=== PATIENT | female | born 1965 | race Caucasian/White ===

== ENCOUNTER 2024-08-11 22:09 | Inpatient (IN) | payer BC ==
[~2024-08-11] VITALS: Ht 157.5 cm; Wt 113.4 kg
[2024-08-11] MEDS: ACETAMINOPHEN 1000MG/100ML 100 ML IV ONE (22:44)
[2024-08-11 22:59] LABS: HEMATOCRIT. 42.2 % (36.0-48.0); HEMOGLOBIN. 13.8 g/dL (12.0-16.0); MEAN CORPUSCULAR HEMOGLOBIN 28.6 pg (28.0-32.0); MEAN CORPUSCULAR HGB CONC 32.7 g/dL (31.0-37.0); MEAN CORPUSCULAR VOLUME 87.4 fL (81.0-99.0); MEAN PLATELET VOLUME 7.2 fl (7.4-10.4); PLATELET 225 x1000/uL (130-400); RED BLOOD CELL COUNT 4.82 mill/uL (4.2-5.4); RED CELL DISTRIBUTION WIDTH 16.5 % (11.6-14.6); WHITE BLOOD COUNT 9.5 x1000/uL (4.5-11.0)
[2024-08-11 23:02] LABS: DIFFERENTIAL COMMENT 1
[2024-08-11 23:12] LABS: AMMONIA < 17 uMol/L (<32); INR 1.1; LACTIC ACID 2.7 mmol/L (0.4-2.0); PROTHROMBIN TIME 11.9 sec (9.6-11.0)
[2024-08-11 23:18] LABS: PLATELET ESTIMATE NORMAL
[2024-08-11 23:27] LABS: CHLORIDE 103 mEq/L (98-107); SODIUM 133 mEq/L (136-145)
[2024-08-11 23:28] LABS: CARBON DIOXIDE 19 mEq/L (21-32)
[2024-08-11 23:29] LABS: CALCIUM 9.6 mg/dL (8.7-10.4)
[2024-08-11 23:33] LABS: CREATININE 0.9 mg/dL (0.6-1.0); GLUCOSE 326 mg/dL (70-105)
[2024-08-11 23:34] LABS: UREA NITROGEN BLOOD 19 mg/dL (9-23)
[2024-08-11 23:35] LABS: ALANINE AMINOTRANSFERASE 19 IU/L (10-49); ALBUMIN 3.9 g/dL (3.2-4.8); ASPARTATE AMINOTRANSFERASE 30 IU/L (<34)
[2024-08-11 23:36] LABS: BILIRUBIN DIRECT 0.2 mg/dL (<=3.0); BILIRUBIN TOTAL 0.5 mg/dL (0.1-1.0)
[2024-08-11] MEDS: SODIUM CHLORIDE 0.9% 1000ML BAG (SEPSIS BOLUS) IV ONE (23:38)
[2024-08-11 23:55] LABS: ETHANOL BLOOD < 10 mg/dL (<10)
[2024-08-12] VITALS (75 sets, daily range): BP systolic 61–175; BP diastolic 31–144; PULSE 73–120; RESP 12–38; TEMP 37.503–38.3364; O2SAT 89–98
[2024-08-12] MEDS: VANCOMYCIN 1.5GM/250ML 250 ML IV NR (00:12)
[2024-08-12 00:38] LABS: CLARITY URINE CLOUDY (CLEAR); COLOR URINE DARK YELLOW (YELLOW); GLUCOSE URINE 3+ (NEGATIVE); KETONES URINE 2+ (NEGATIVE); LEUKOCYTE ESTERASE URINE 1+ (NEGATIVE); NITRITE URINE POSITIVE (NEGATIVE); OCCULT BLOOD URINE 3+ (NEGATIVE); PH URINE 5.5 (4.5-8.0); PROTEIN URINE 2+ (NEGATIVE); SPECIFIC GRAVITY URINE 1.035 (1.005-1.030)
[2024-08-12 00:48] LABS: *AMPHETAMINES SCREEN URINE NEGATIVE (NEGATIVE); *BARBITURATES SCREEN URINE NEGATIVE (NEGATIVE); *BENZODIAZEPINES SCREEN URINE NEGATIVE (NEGATIVE); *COCAINE SCREEN URINE NEGATIVE (NEGATIVE); CANNABINOID URINE SCREEN NEGATIVE (NEGATIVE); ECSTASY MDMA SCREEN URINE NEGATIVE (NEGATIVE); METHADONE URINE SCREEN NEGATIVE (NEGATIVE); OPIATES URINE SCREEN NEGATIVE (NEGATIVE); PHENCYCLIDINE URINE SCREEN NEGATIVE (NEGATIVE)
[2024-08-12] MEDS ORDERED: NOREPINEPHRINE 8 MG in DEXT 5% WATER 242 ML IV PRN (01:45)
[2024-08-12] MEDS: NOREPINEPHRINE 8MG/250ML PMX 250 ML IV PRN (01:56)
[2024-08-12] MEDS: PIPERACILLIN/TAZO 3.375G/50ML 50 ML IV NR (01:58)
[2024-08-12] MEDS ORDERED: GUAIFENESIN 200MG/10ML SUGAR FREE UDC PO PRN (02:30)
[2024-08-12] MEDS ORDERED: CLONIDINE 0.1MG TABLET PO PRN (02:30)
[2024-08-12] MEDS ORDERED: DEXTROSE 50% WATER 50ML SYRINGE IV PRN (02:30)
[2024-08-12] MEDS ORDERED: IPRATROPIUM/ALBUTEROL 0.5-3(2.5)MG/3ML NEB HHN PRN (02:30)
[2024-08-12] MEDS ORDERED: DOCUSATE SODIUM 100MG CAPSULE PO PRN (02:30)
[2024-08-12] MEDS ORDERED: DIPHENHYDRAMINE 50MG/ML VIAL IV PRN (02:30)
[2024-08-12] MEDS ORDERED: MAGNESIUM/ALUMINUM HYDROXIDE/SIMETHICONE 30ML UDC PO PRN (02:30)
[2024-08-12 02:35] LABS: WBC URINE 15-25 /hpf (0-2)
[2024-08-12 02:36] LABS: RBC URINE 25-50 /hpf (0-2); SQUAMOUS EPITHELIAL CELL URINE NONE SEEN /lpf (RARE/1+)
[2024-08-12] MEDS: INSULIN REGULAR (HUMULIN R) 1000UNITS/10ML VIAL SUBCUT NR (02:36)
[2024-08-12 02:37] LABS: BACTERIA URINE 1+; YEAST URINE 1+
[2024-08-12] MEDS: SODIUM CHLORIDE 0.9% 1,000 ML IV SCH (02:48)
[2024-08-12] MEDS: FLUCONAZOLE 200 MG/100ML BAG 100 ML IV SCH (03:09)
[2024-08-12] MEDS: PANTOPRAZOLE SODIUM 40 MG/VIAL IV SCH (04:19)
[2024-08-12 06:17] LABS: CREATINE KINASE 442 IU/L (34-145); CREATINE KINASE MB FRACTION 2.1 ng/mL (0.5-3.6); TROPONIN I HIGH SENSITIVITY 16 ng/L (3.0-34)
[2024-08-12] MEDS: ONDANSETRON HCL 4MG/2ML INJ IV PRN (08:02)
[2024-08-12] MEDS: BLOOD SUGAR DIAGNOSTIC STRIP TEST SCH (08:19)
[2024-08-12] MEDS: INSULIN LISPRO 100 UNITS/ML SUBCUT SCH (08:20)
[2024-08-12] MEDS ORDERED: VANCOMYCIN 750MG/150ML (BAXTER) IV SCH (09:00)
[2024-08-12] MEDS: PIPERACILLIN/TAZO 3.375G/50ML 50 ML IV SCH (10:10)
[2024-08-12] MEDS: ENOXAPARIN 30MG/0.3ML SYR SUBCUT SCH (10:12)
[2024-08-12 11:38] LABS: HEMATOCRIT. 44.4 % (36.0-48.0); HEMOGLOBIN. 13.4 g/dL (12.0-16.0); MEAN CORPUSCULAR HEMOGLOBIN 27.2 pg (28.0-32.0); MEAN CORPUSCULAR HGB CONC 30.2 g/dL (31.0-37.0); MEAN CORPUSCULAR VOLUME 90.1 fL (81.0-99.0); MEAN PLATELET VOLUME 7.7 fl (7.4-10.4); PLATELET 265 x1000/uL (130-400); RED BLOOD CELL COUNT 4.93 mill/uL (4.2-5.4); RED CELL DISTRIBUTION WIDTH 17.4 % (11.6-14.6); WHITE BLOOD COUNT 28.7 x1000/uL (4.5-11.0)
[2024-08-12 11:39] LABS: DIFFERENTIAL COMMENT 1
[2024-08-12 12:01] LABS: CHLORIDE 110 mEq/L (98-107); POTASSIUM 3.8 mEq/L (3.5-5.1); SODIUM 139 mEq/L (136-145)
[2024-08-12 12:02] LABS: CALCIUM 8.7 mg/dL (8.7-10.4); CARBON DIOXIDE 15 mEq/L (21-32)
[2024-08-12 12:07] LABS: CREATININE 0.8 mg/dL (0.6-1.0); GLUCOSE 235 mg/dL (70-105); UREA NITROGEN BLOOD 16 mg/dL (9-23)
[2024-08-12] MEDS: ACETAMINOPHEN 325MG TABLET PO PRN (12:35)
[2024-08-12 16:48] LABS: ANISOCYTOSIS 1+; PLATELET ESTIMATE NORMAL
[2024-08-12] MEDS: VANCOMYCIN 1.5GM/250ML 250 ML IV SCH (17:39)
[2024-08-12] MEDS: INSULIN GLARGINE 100 UNITS/ML SUBCUT SCH (21:03)
[2024-08-13] VITALS (71 sets, daily range): BP systolic 70–147; BP diastolic 22–103; PULSE 69–115; RESP 10–34; TEMP 37.16964–37.94748; O2SAT 92–100
[2024-08-13 07:04] LABS: HEMATOCRIT. 40.9 % (36.0-48.0); HEMOGLOBIN. 12.9 g/dL (12.0-16.0); MEAN CORPUSCULAR HEMOGLOBIN 28.3 pg (28.0-32.0); MEAN CORPUSCULAR HGB CONC 31.6 g/dL (31.0-37.0); MEAN CORPUSCULAR VOLUME 89.8 fL (81.0-99.0); MEAN PLATELET VOLUME 7.5 fl (7.4-10.4); PLATELET 208 x1000/uL (130-400); RED BLOOD CELL COUNT 4.55 mill/uL (4.2-5.4); RED CELL DISTRIBUTION WIDTH 17.3 % (11.6-14.6); WHITE BLOOD COUNT 17.2 x1000/uL (4.5-11.0)
[2024-08-13 07:20] LABS: DIFFERENTIAL COMMENT 1
[2024-08-13 07:24] LABS: CHLORIDE 109 mEq/L (98-107); POTASSIUM 3.8 mEq/L (3.5-5.1); SODIUM 137 mEq/L (136-145)
[2024-08-13 07:25] LABS: CALCIUM 9.2 mg/dL (8.7-10.4)
[2024-08-13 07:30] LABS: CREATININE 0.8 mg/dL (0.6-1.0); GLUCOSE 132 mg/dL (70-105); TRIGLYCERIDE 243 mg/dL (0-150); UREA NITROGEN BLOOD 9 mg/dL (9-23)
[2024-08-13 07:31] LABS: ALANINE AMINOTRANSFERASE 24 IU/L (10-49); ALBUMIN 3.8 g/dL (3.2-4.8); ASPARTATE AMINOTRANSFERASE 31 IU/L (<34); LDL CHOLESTEROL 45 mg/dL (5-100)
[2024-08-13 07:32] LABS: BILIRUBIN DIRECT 0.1 mg/dL (<=3.0); BILIRUBIN TOTAL 0.3 mg/dL (0.1-1.0); CHOLESTEROL 117 mg/dL (<200); HDL CHOLESTEROL < 20 mg/dL (>65); PROTEIN TOTAL 6.7 g/dL (6.0-8.3); T4 FREE 0.91 ng/dL (0.89-1.76); THYROID STIMULATING HORMONE 0.52 uIU/mL (0.55-4.78)
[2024-08-13 07:36] LABS: HEPATITIS B SURFACE ANTIGEN NEGATIVE (Negative)
[2024-08-13 07:54] LABS: CARBON DIOXIDE < 10 mEq/L (21-32)
[2024-08-13 07:57] LABS: HEPATITIS A AB IGM NEGATIVE (Negative); HEPATITIS B CORE AB IGM NEGATIVE (Negative)
[2024-08-13 07:58] LABS: HEPATITIS C AB NON REACTIVE (Neg) (Negative)
[2024-08-13] MEDS: SODIUM BICARBONATE 150 MEQ in DEXTROSE 5% WATER 850 ML IV SCH (08:52)
[2024-08-13] MEDS: SODIUM BICARBONATE 8.4% 50MEQ/50ML SYR IV NR (10:51)
[2024-08-13] MEDS: DEXT 5%/0.45% NACL 1000ML 1,000 ML IV SCH (10:52)
[2024-08-13 11:25] LABS: TRIGLYCERIDE 245 mg/dL (0-150)
[2024-08-13 11:26] LABS: LDL CHOLESTEROL 44 mg/dL (5-100)
[2024-08-13 11:27] LABS: CHOLESTEROL 116 mg/dL (<200); HDL CHOLESTEROL < 20 mg/dL (>65)
[2024-08-13 11:29] LABS: T4 FREE 0.98 ng/dL (0.89-1.76)
[2024-08-13 12:59] LABS: CHLORIDE 109 mEq/L (98-107); SODIUM 142 mEq/L (136-145)
[2024-08-13 13:00] LABS: CARBON DIOXIDE 17 mEq/L (21-32)
[2024-08-13 13:01] LABS: CALCIUM 7.9 mg/dL (8.7-10.4)
[2024-08-13 13:05] LABS: CREATININE 0.8 mg/dL (0.6-1.0)
[2024-08-13 13:06] LABS: GLUCOSE 259 mg/dL (70-105); UREA NITROGEN BLOOD 13 mg/dL (9-23)
[2024-08-13 14:13] LABS: ANISOCYTOSIS 1+; PLATELET ESTIMATE NORMAL
[2024-08-13 17:02] LABS: CREATINE KINASE MB FRACTION 0.5 ng/mL (0.5-3.6)
[2024-08-13] MEDS: MEROPENEM 1G/100ML IV SCH (17:43)
[2024-08-13] MEDS: SODIUM CHLORIDE 0.45% 1,000 ML IV SCH (18:55)
[2024-08-14] VITALS (69 sets, daily range): BP systolic 77–155; BP diastolic 52–111; PULSE 61–102; RESP 8–32; TEMP 36.55848–37.55856; O2SAT 91–100
[2024-08-14 00:44] LABS: CREATINE KINASE MB FRACTION < 0.5 ng/mL (0.5-3.6); TROPONIN I HIGH SENSITIVITY 8 ng/L (3.0-34)
[2024-08-14 00:46] LABS: CREATINE KINASE 175 IU/L (34-145)
[2024-08-14 07:01] LABS: BASOPHILS % 0.2 % (0.0-2.0); EOSINOPHILS % 0.4 % (0.0-5.0); HEMATOCRIT. 38.5 % (36.0-48.0); HEMOGLOBIN. 12.2 g/dL (12.0-16.0); LYMPHOCYTES % 7.7 % (20.0-50.0); MEAN CORPUSCULAR HEMOGLOBIN 28.4 pg (28.0-32.0); MEAN CORPUSCULAR HGB CONC 31.8 g/dL (31.0-37.0); MEAN CORPUSCULAR VOLUME 89.3 fL (81.0-99.0); NEUTROPHILS % 84.7 % (40.0-76.0); PLATELET 186 x1000/uL (130-400); RED BLOOD CELL COUNT 4.31 mill/uL (4.2-5.4); RED CELL DISTRIBUTION WIDTH 17.4 % (11.6-14.6); WHITE BLOOD COUNT 11.2 x1000/uL (4.5-11.0)
[2024-08-14 07:12] LABS: CHLORIDE 107 mEq/L (98-107); POTASSIUM 3.7 mEq/L (3.5-5.1); SODIUM 137 mEq/L (136-145)
[2024-08-14 07:13] LABS: CARBON DIOXIDE 19 mEq/L (21-32)
[2024-08-14 07:17] LABS: CREATINE KINASE MB FRACTION < 0.5 ng/mL (0.5-3.6); TROPONIN I HIGH SENSITIVITY 8 ng/L (3.0-34)
[2024-08-14 07:18] LABS: CREATININE 0.7 mg/dL (0.6-1.0); GLUCOSE 127 mg/dL (70-105); UREA NITROGEN BLOOD 8 mg/dL (9-23)
[2024-08-14 07:20] LABS: CREATINE KINASE 138 IU/L (34-145)
[2024-08-14] MEDS ORDERED: HEPARIN 1000 UNITS/ML 10ML ONE (11:52)
[2024-08-14] MEDS ORDERED: LIDOCAINE HCL 1% 20ML VIAL ONE (11:52)
[2024-08-14] MEDS ORDERED: IODIXANOL 320MG/ML 100 ML BOTTLE IV ONE (11:53)
[2024-08-15] VITALS (27 sets, daily range): BP systolic 90–156; BP diastolic 44–105; PULSE 66–100; RESP 16–38; TEMP 36.50292–37.28076; O2SAT 73–98
[2024-08-15 04:43] LABS: BASOPHILS % 0.4 % (0.0-2.0); EOSINOPHILS % 1.3 % (0.0-5.0); HEMATOCRIT. 36.1 % (36.0-48.0); HEMOGLOBIN. 11.9 g/dL (12.0-16.0); LYMPHOCYTES % 17.3 % (20.0-50.0); MEAN CORPUSCULAR HEMOGLOBIN 28.4 pg (28.0-32.0); MONOCYTES % 10.4 % (2.0-8.0); NEUTROPHILS % 70.6 % (40.0-76.0); PLATELET 190 x1000/uL (130-400); RED CELL DISTRIBUTION WIDTH 17.2 % (11.6-14.6)
[2024-08-15 04:51] LABS: CARBON DIOXIDE 22 mEq/L (21-32)
[2024-08-15 04:52] LABS: CALCIUM 8.4 mg/dL (8.7-10.4)
[2024-08-15 04:57] LABS: CREATININE 0.5 mg/dL (0.6-1.0); GLUCOSE 128 mg/dL (70-105); UREA NITROGEN BLOOD 8 mg/dL (9-23)
[2024-08-15 05:14] LABS: CHLORIDE 108 mEq/L (98-107); POTASSIUM 3.3 mEq/L (3.5-5.1); SODIUM 139 mEq/L (136-145)
[2024-08-15] MEDS: POTASSIUM CHLORIDE 20MEQ/PACKET PO NR (08:20)
[2024-08-15] MEDS: ACETAMINOPHEN 325MG TABLET PO PRN (08:41)
[2024-08-15] MEDS: POLYETHYLENE GLYCOL 3350 (17GM) 1 DOSE PACK PO SCH (11:00)
[2024-08-16] VITALS (15 sets, daily range): BP systolic 106–158; BP diastolic 52–89; PULSE 63–88; RESP 15–31; TEMP 36.55848–37.39188; O2SAT 93–98
[2024-08-16 05:51] LABS: CHLORIDE 107 mEq/L (98-107); POTASSIUM 3.3 mEq/L (3.5-5.1); SODIUM 141 mEq/L (136-145)
[2024-08-16 05:52] LABS: CALCIUM 8.6 mg/dL (8.7-10.4); CARBON DIOXIDE 26 mEq/L (21-32)
[2024-08-16 05:57] LABS: CREATININE 0.4 mg/dL (0.6-1.0); GLUCOSE 107 mg/dL (70-105); UREA NITROGEN BLOOD 8 mg/dL (9-23)
[2024-08-16 05:59] LABS: ALANINE AMINOTRANSFERASE 15 IU/L (10-49); ALBUMIN 3.1 g/dL (3.2-4.8); ASPARTATE AMINOTRANSFERASE 14 IU/L (<34); BASOPHILS % 0.6 % (0.0-2.0); BILIRUBIN TOTAL 0.4 mg/dL (0.1-1.0); EOSINOPHILS % 1.6 % (0.0-5.0); HEMATOCRIT. 37.5 % (36.0-48.0); HEMOGLOBIN. 12.2 g/dL (12.0-16.0); LYMPHOCYTES % 21.2 % (20.0-50.0); MEAN CORPUSCULAR HEMOGLOBIN 28.3 pg (28.0-32.0); MEAN CORPUSCULAR HGB CONC 32.6 g/dL (31.0-37.0); MEAN PLATELET VOLUME 7.2 fl (7.4-10.4); MONOCYTES % 10.4 % (2.0-8.0); NEUTROPHILS % 66.2 % (40.0-76.0); PLATELET 237 x1000/uL (130-400); RED BLOOD CELL COUNT 4.32 mill/uL (4.2-5.4); RED CELL DISTRIBUTION WIDTH 17.8 % (11.6-14.6); WHITE BLOOD COUNT 7.1 x1000/uL (4.5-11.0)
[2024-08-16 06:00] LABS: PROTEIN TOTAL 5.8 g/dL (6.0-8.3)
[2024-08-16] MEDS: POTASSIUM CHLORIDE 20MEQ/PACKET PO NR (09:15)
[2024-08-16] MEDS ORDERED: LOPERAMIDE HCL 2MG CAPSULE PO PRN (23:45)
[2024-08-17] VITALS: BP 110/66; PULSE 90; RESP 20; TEMP 36.89184; O2SAT 97
[2024-08-17 04:00] VITALS: BP 110/57; PULSE 78; RESP 20; TEMP 36.22512; O2SAT 100
[2024-08-17 05:50] LABS: BASOPHILS % 0.4 % (0.0-2.0); EOSINOPHILS % 0.8 % (0.0-5.0); HEMATOCRIT. 35.7 % (36.0-48.0); HEMOGLOBIN. 11.6 g/dL (12.0-16.0); LYMPHOCYTES % 22.9 % (20.0-50.0); MEAN CORPUSCULAR HEMOGLOBIN 27.8 pg (28.0-32.0); MEAN CORPUSCULAR HGB CONC 32.6 g/dL (31.0-37.0); MEAN CORPUSCULAR VOLUME 85.3 fL (81.0-99.0); MEAN PLATELET VOLUME 7.1 fl (7.4-10.4); MONOCYTES % 8.5 % (2.0-8.0); NEUTROPHILS % 67.4 % (40.0-76.0); PLATELET 298 x1000/uL (130-400); RED BLOOD CELL COUNT 4.18 mill/uL (4.2-5.4); RED CELL DISTRIBUTION WIDTH 17.1 % (11.6-14.6); WHITE BLOOD COUNT 9.4 x1000/uL (4.5-11.0)
[2024-08-17 05:56] LABS: CHLORIDE 106 mEq/L (98-107); POTASSIUM 3.2 mEq/L (3.5-5.1); SODIUM 140 mEq/L (136-145)
[2024-08-17 05:57] LABS: CARBON DIOXIDE 29 mEq/L (21-32)
[2024-08-17 05:58] LABS: CALCIUM 8.7 mg/dL (8.7-10.4)
[2024-08-17 06:02] LABS: CREATININE 0.4 mg/dL (0.6-1.0)
[2024-08-17 06:03] LABS: GLUCOSE 176 mg/dL (70-105); UREA NITROGEN BLOOD 7 mg/dL (9-23)
[2024-08-17 06:04] LABS: ALANINE AMINOTRANSFERASE 12 IU/L (10-49); ALBUMIN 3.1 g/dL (3.2-4.8); ASPARTATE AMINOTRANSFERASE 12 IU/L (<34)
[2024-08-17 06:05] LABS: BILIRUBIN DIRECT 0.1 mg/dL (<=3.0); BILIRUBIN TOTAL 0.4 mg/dL (0.1-1.0); PROTEIN TOTAL 5.7 g/dL (6.0-8.3)
[2024-08-17 08:00] VITALS: BP 108/55; PULSE 77; RESP 20; TEMP 37.00296; O2SAT 95
[2024-08-17] MEDS: POTASSIUM CHLORIDE 20MEQ/PACKET PO NR (08:56)
[2024-08-17 12:00] VITALS: BP 109/63; PULSE 80; RESP 18; TEMP 36.61404; O2SAT 95
[2024-08-17 16:00] VITALS: BP 110/55; PULSE 88; RESP 20; TEMP 37.11408; O2SAT 98
[2024-08-17 19:25] LABS: IRON 25 ug/dL (50-170)
[2024-08-17 19:28] LABS: TOTAL IRON BINDING CAPACITY 208 ug/dl (250-425)
[2024-08-17] MEDS: INSULIN LISPRO 100 UNITS/ML SUBCUT NR (19:51)
[2024-08-17 20:00] VITALS: BP 110/65; PULSE 76; RESP 16; TEMP 36.3918; O2SAT 97
[2024-08-17 21:12] LABS: FOLIC ACID (FOLATE) SERUM > 20.00 ng/mL (>5.38)
[2024-08-17 21:14] LABS: VITAMIN B12 SERUM 1379 pg/mL (211-911)
[2024-08-17] MEDS: INSULIN GLARGINE 100 UNITS/ML SUBCUT SCH (22:30)
[2024-08-18] VITALS: BP_SYST 112; BP_SYST 173; BP_DIAS 68; BP_DIAS 75; PULSE 78; PULSE 82; RESP 19; TEMP 36.28068; O2SAT 6; O2SAT 99
[2024-08-18 04:00] VITALS: BP 102/44; PULSE 73; RESP 18; TEMP 36.3918; O2SAT 95
[2024-08-18 07:22] LABS: CARBON DIOXIDE 29 mEq/L (21-32); CHLORIDE 105 mEq/L (98-107); POTASSIUM 3.6 mEq/L (3.5-5.1); SODIUM 139 mEq/L (136-145)
[2024-08-18 07:24] LABS: CALCIUM 8.6 mg/dL (8.7-10.4)
[2024-08-18 07:28] LABS: CREATININE 0.4 mg/dL (0.6-1.0)
[2024-08-18 07:29] LABS: GLUCOSE 190 mg/dL (70-105); UREA NITROGEN BLOOD 6 mg/dL (9-23)
[2024-08-18 07:47] LABS: HEMATOCRIT. 35.4 % (36.0-48.0); HEMOGLOBIN. 11.3 g/dL (12.0-16.0); MEAN CORPUSCULAR HEMOGLOBIN 27.7 pg (28.0-32.0); MEAN CORPUSCULAR VOLUME 86.4 fL (81.0-99.0); MEAN PLATELET VOLUME 6.9 fl (7.4-10.4); PLATELET 330 x1000/uL (130-400); RED CELL DISTRIBUTION WIDTH 17.2 % (11.6-14.6); WHITE BLOOD COUNT 8.6 x1000/uL (4.5-11.0)
[2024-08-18 08:03] VITALS: BP 125/66; PULSE 76; RESP 20; TEMP 36.6696; O2SAT 93
[2024-08-18 08:32] LABS: DIFFERENTIAL COMMENT 1
[2024-08-18 11:56] VITALS: BP 109/68; PULSE 78; RESP 20; TEMP 36.78072; O2SAT 99
[2024-08-18 13:17] LABS: PLATELET ESTIMATE NORMAL
[2024-08-18 16:00] VITALS: BP 124/51; PULSE 72; RESP 20; TEMP 36.61404; O2SAT 99
[2024-08-18] MEDS ORDERED: INSU100I24 SUBCUT (16:30)
[2024-08-18] MEDS ORDERED: METF-416 PO (16:30)
[2024-08-18] MEDS ORDERED: EMPA25TA PO (16:31)
[2024-08-18] MEDS ORDERED: BENA-8 PO (16:31)
[2024-08-18] MEDS ORDERED: SIMV-43 PO (16:31)
[2024-08-18] MEDS ORDERED: GABA-529 PO (16:31)
[2024-08-18] MEDS ORDERED: CHOL2000 PO (16:31)
[2024-08-18] MEDS ORDERED: AMLO5TAB88 PO (16:31)
[2024-08-18] MEDS ORDERED: TOPUD PO (16:37)
[2024-08-18] MEDS ORDERED: PROT20 PO (16:37)
[2024-08-18 16:58] VITALS: BP 132/68; PULSE 73; TEMP 98; O2SAT 99
== END 2024-08-18 18:40 | disposition home health service (06) | DRG 720 ==
LOC: ER 22:09 → CVICU 08-12 01:32 → EDBEDREQDT 08-12 01:39 → EDBEDREQSVC 08-12 01:39 → EDBEDREQ 08-12 01:39 → EDBEDREQTM 08-12 01:39 → 7WST 08-16 12:38
PROVIDERS: ADMIT Internal Medicine; ATTEND Internal Medicine
PROC: 02HV33Z Insertion of Infusion Device into Superior Vena Cava, Percutaneous Approach (ICD-10-PCS; principal; 2024-08-16)
PROC: B548ZZA Ultrasonography of Superior Vena Cava, Guidance (ICD-10-PCS; 2024-08-16)
DX: A41.51 Sepsis due to Escherichia coli [E. coli] (principal); R65.21 Severe sepsis with septic shock; E87.20 Acidosis, unspecified; R16.0 Hepatomegaly, not elsewhere classified; Z68.43 Body mass index [BMI] 50.0-59.9, adult; B37.49 Other urogenital candidiasis; K76.0 Fatty (change of) liver, not elsewhere classified; E66.01 Morbid (severe) obesity due to excess calories; E11.65 Type 2 diabetes mellitus with hyperglycemia; I10 Essential (primary) hypertension; J98.11 Atelectasis; G89.18 Other acute postprocedural pain; N13.6 Pyonephrosis; E78.5 Hyperlipidemia, unspecified; K42.9 Umbilical hernia without obstruction or gangrene; Z79.899 Other long term (current) drug therapy; Z90.49 Acquired absence of other specified parts of digestive tract; Z87.442 Personal history of urinary calculi; Z79.4 Long term (current) use of insulin; Z88.5 Allergy status to narcotic agent
CPT/HCPCS: 36415; 36573; 71045; 74176; 76700; 80048; 80053; 80061; 80076; 80305; 80320; 81003; 82010; 82140; 82550; 82553; 82607; 82746; 82962; 83036; 83540; 83550; 83605; 83880; 83930; 84145; 84439; 84443; 84484; 85025; 85379; 86705; 86709; 87077; 87186; 87340; 93005; 93306; 93970; 97162; 99291; C1725; J1450; J1644; J1650; J1815; J2185; J2405; J2470; J2543; J3370; J3490; J7070; Q9967; G0480; J0131

== ENCOUNTER 2024-10-30 03:19 | Emergency (ER) | payer BC, MEDICAID ==
[~2024-10-30] VITALS: Ht 154.9 cm; Wt 104.9 kg
[~2024-10-30 03:19] MED LIST: AMLO5TAB88 PO; BENA-8 PO; CHOL2000 PO; DICL100G58 TP; DICL75TA5 PO; EMPA25TA PO; GABA-529 PO; INSU100I24 SUBCUT; METF-416 PO; ONDA-239 SL; PROT20 PO; SIMV-43 PO; TOPUD PO
[2024-10-30 03:41] VITALS: O2SAT 99
[2024-10-30 05:16] LABS: CARBON DIOXIDE 26 mEq/L (21-32); CHLORIDE 107 mEq/L (98-107); POTASSIUM 4.2 mEq/L (3.5-5.1); SODIUM 141 mEq/L (136-145)
[2024-10-30 05:17] LABS: CALCIUM 9.8 mg/dL (8.7-10.4)
[2024-10-30 05:21] LABS: CREATININE 0.6 mg/dL (0.6-1.0); GLUCOSE 276 mg/dL (70-105)
[2024-10-30 05:22] LABS: UREA NITROGEN BLOOD 11 mg/dL (9-23)
[2024-10-30 05:24] LABS: ALANINE AMINOTRANSFERASE 11 IU/L (10-49); ALBUMIN 4.3 g/dL (3.2-4.8); ASPARTATE AMINOTRANSFERASE 13 IU/L (<34); BILIRUBIN TOTAL 0.4 mg/dL (0.1-1.0); PROTEIN TOTAL 7.8 g/dL (6.0-8.3)
[2024-10-30 05:25] LABS: BASOPHILS % 0.3 % (0.0-2.0); DIFFERENTIAL COMMENT 0; EOSINOPHILS % 0.7 % (0.0-5.0); HEMATOCRIT. 45.4 % (36.0-48.0); HEMOGLOBIN. 14.1 g/dL (12.0-16.0); LYMPHOCYTES % 9.4 % (20.0-50.0); MEAN CORPUSCULAR HEMOGLOBIN 26.8 pg (28.0-32.0); MEAN CORPUSCULAR HGB CONC 31.1 g/dL (31.0-37.0); MEAN CORPUSCULAR VOLUME 86.3 fL (81.0-99.0); MEAN PLATELET VOLUME 6.8 fl (7.4-10.4); MONOCYTES % 4.7 % (2.0-8.0); NEUTROPHILS % 84.9 % (40.0-76.0); PLATELET 361 x1000/uL (130-400); RED BLOOD CELL COUNT 5.26 mill/uL (4.2-5.4); RED CELL DISTRIBUTION WIDTH 17.2 % (11.6-14.6); WHITE BLOOD COUNT 15.7 x1000/uL (4.5-11.0)
[2024-10-30] MEDS: ONDANSETRON 4MG ODT PO ONE ×2 (08:20)
[2024-10-30 09:02] LABS: CLARITY URINE CLEAR (CLEAR); COLOR URINE YELLOW (YELLOW); GLUCOSE URINE 3+ (NEGATIVE); KETONES URINE 1+ (NEGATIVE); LEUKOCYTE ESTERASE URINE TRACE (NEGATIVE); NITRITE URINE NEGATIVE (NEGATIVE); OCCULT BLOOD URINE NEGATIVE (NEGATIVE); PH URINE 5.5 (4.5-8.0); PROTEIN URINE 1+ (NEGATIVE); SPECIFIC GRAVITY URINE 1.034 (1.005-1.030); UROBILINOGEN URINE 0.2 E.U./dL (0.2-1.0)
[2024-10-30 09:14] LABS: BACTERIA URINE 1+; RBC URINE 0-2 /hpf (0-2); SQUAMOUS EPITHELIAL CELL URINE 1+ /lpf (RARE/1+); YEAST URINE 1+
[2024-10-30] MEDS ORDERED: AMOX1TAB16 MT (15:06)
[2024-10-30] MEDS: KETOROLAC 15MG/ML VIAL IM ONE (15:29)
[2024-10-30 15:32] VITALS: BP 125/71; PULSE 87; RESP 18; TEMP 36.61404; O2SAT 99
== END 2024-10-30 15:34 | disposition home or self-care (01) ==
LOC: ER 03:19
DX: N39.0 Urinary tract infection, site not specified (principal); E11.9 Type 2 diabetes mellitus without complications; I10 Essential (primary) hypertension; E78.00 Pure hypercholesterolemia, unspecified; Z79.84 Long term (current) use of oral hypoglycemic drugs; Z79.899 Other long term (current) drug therapy; Z87.440 Personal history of urinary (tract) infections; Z88.5 Allergy status to narcotic agent; Z90.49 Acquired absence of other specified parts of digestive tract; Z98.51 Tubal ligation status; Z98.890 Other specified postprocedural states
CPT/HCPCS: 80053; 81003; 83690; 85025; 36415; 96372; 99283; Q0162; J1885; Z7610